=== PATIENT | female | born 1980 | race Caucasian/White ===

== ENCOUNTER → 2020-04-29 | Outpatient (CLI) | payer OTHER ==
[2020-04-29 09:02] LABS: CHOLESTEROL 158.38 mg/dL (0-200); TRIGLYCERIDES 42 mg/dL (<150)
[2020-04-29 09:12] LABS: DIRECT LDL 84 mg/dL (<100)
== END ==
LOC: OD 07:24
PROVIDERS: ATTEND Specialist
DX: Z13.1 Encounter for screening for diabetes mellitus (principal); Z13.220 Encounter for screening for lipoid disorders; Z13.29 Encounter for screening for other suspected endocrine disorder
CPT/HCPCS: 36415; 80061; 83036